=== PATIENT | female | born 1940 | race Caucasian/White ===

== ENCOUNTER 2019-03-11 06:25 | Observation (INO) | payer BC, MEDICARE ==
[~2019-03-11] VITALS: Ht 165.1 cm; Wt 150.3 kg
[2019-03-11] MEDS ORDERED: ONDANSETRON 2MG/ML, 2ML IVPush ONE (06:30)
[2019-03-11 06:55] LABS: BASOPHILS # (AUTO) 0.04 x10^3/uL (0-0.1); BASOPHILS % (AUTO) 1 % (0-1); EOSINOPHILS # (AUTO) 0.16 x10^3/uL (0-0.4); EOSINOPHILS % (AUTO) 3 % (1-7); LYMPHOCYTES % (AUTO) 24 % (22-44); MD NO; MEAN CORPUSCULAR HEMOGLOBIN 31.7 pg (27.0-34.8); MEAN CORPUSCULAR HGB CONC 32.5 g/dL (32.4-35.8); MEAN CORPUSCULAR VOLUME 97.5 fL (80-100); MEAN PLATELET VOLUME 7.6 fL (7.4-10.4); MONOCYTES # (AUTO) 0.75 x10^3/uL (0.2-0.8); MONOCYTES % (AUTO) 14 % (2-9); NEUTROPHILS # (AUTO) 3.18 x10^3/uL (1.8-6.8); NEUTROPHILS % (AUTO) 59 % (42-75); PLATELET COUNT 289 x10^3/uL (130-400); RED BLOOD COUNT 3.93 x10^6/uL (3.82-5.3); RED CELL DISTRIBUTION WIDTH 14.2 % (9.6-15.2)
[2019-03-11] MEDS ORDERED: ONDANSETRON 2MG/ML, 2ML ONE (06:59)
[2019-03-11 07:05] LABS: ALANINE AMINOTRANSFERASE 18 U/L (12-78); ALBUMIN 3.6 g/dL (3.4-5.0); ANION GAP 4 mmol/L (5-15); CALCIUM 9.2 mg/dL (8.5-10.1); CHLORIDE 110 mmol/L (98-107); CREATININE 0.95 mg/dL (0.55-1.02); INTERNATIONAL NORMALIZED RATIO 0.91 (0.93-1.1); PROTHROMBIN TIME 9.6 Seconds (9.6-11.5)
[2019-03-11 07:09] LABS: ALKALINE PHOSPHATASE 74 U/L (45-117); BILIRUBIN,TOTAL 0.4 mg/dL (0.2-1.0); TOTAL PROTEIN 6.8 g/dL (6.4-8.2); TROPONIN I < 0.015 ng/mL (0.000-0.045)
[2019-03-11] MEDS ORDERED: ATOR20TA37 PO (08:17)
[2019-03-11] MEDS ORDERED: LOSA100T14 PO (08:17)
[2019-03-11] MEDS ORDERED: CARV6.2512 PO (08:17)
[2019-03-11] MEDS ORDERED: CITA20TA6 PO (08:17)
[2019-03-11] MEDS ORDERED: [UNRECOGNIZED DRUG - OTHER] BC (08:17)
[2019-03-11] MEDS ORDERED: CHOL500020 PO (08:17)
[2019-03-11] MEDS ORDERED: INSU100C SQ-INSULIN (08:17)
[2019-03-11] MEDS ORDERED: CYAN100028 PO (08:17)
[2019-03-11] MEDS ORDERED: CILO100T PO (08:17)
[2019-03-11] MEDS ORDERED: INSU100V8 SQ (08:17)
[2019-03-11] MEDS ORDERED: OMEP40CA42 PO (08:17)
[2019-03-11] MEDS ORDERED: MELO7.5T31 PO (08:17)
[2019-03-11] MEDS ORDERED: GABA300C10 PO (08:17)
[2019-03-11] MEDS ORDERED: ALPR0.5T7 PO (08:17)
[2019-03-11 08:57] LABS: CLOSTRIDIUM DIFFICILE ANTIGEN NEGATIVE; CLOSTRIDIUM DIFFICILE TOXIN NEGATIVE (Negative)
--- NOTE | 2019-03-11 08:59 | NUR ---
TASK RN: FIRST CONTACT WITH PT. Obtained straight cath UA. Pt tolerated procedure with out complications. UA sent to lab. Primary RN aware.
[2019-03-11 09:12] LABS: MICROSCOPIC NOT IND
[2019-03-11 09:17] LABS: CULTURE INDICATED? NO
[2019-03-11] MEDS ORDERED: ASPIRIN 81 MG TABLET CHEW ONE (09:30)
[2019-03-11] MEDS ORDERED: ASPIRIN 81 MG TABLET CHEW PO ONE (09:30)
--- NOTE | 2019-03-11 09:39 | NUR ---
BREAK RN NOTE: PT BOOSTED IN BED, REPOSITIONED FOR COMFORT. MEDICATED PER EMAR WITH ASA, PT TOLERATED WELL. EDMD LAW NOTIFIED THAT BP IS 196/86, MD DECLINES TO TREAT HTN AT THIS TIME. PT IS A&O, RESPS EVEN AND UNLABORED. 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 NO N/V AT THIS TIME, PT DENIES PAIN. CALL LIGHT IN REACH, FAMILY AT BEDSIDE. PT AND FAMILY UPDATED WITH POC.
--- NOTE | 2019-03-11 09:50 | NUR ---
report given back to primary REGINA Valdes.
--- NOTE | 2019-03-11 09:59 | NUR ---
dr hernandez at bedside, assessment in progress
[2019-03-11] MEDS ORDERED: DEXTROSE 4 GM TAB.CHEW PO PRN (10:30)
[2019-03-11] MEDS ORDERED: DEXTROSE 50%, 50ML SYRINGE IVPush PRN (10:30)
[2019-03-11] MEDS ORDERED: PROMETHAZINE 25 MG/ML, 1ML IM PRN (10:30)
[2019-03-11] MEDS ORDERED: ACETAMINOPHEN 325 MG TABLET PO PRN (10:30)
[2019-03-11] MEDS ORDERED: ENALAPRILAT 1.25 MG/ML, 2ML IV PRN (10:30)
[2019-03-11] MEDS ORDERED: METOCLOPRAMIDE 5 MG/ML, 2ML IVPush PRN (10:30)
[2019-03-11] MEDS ORDERED: ONDANSETRON 2MG/ML, 2ML IVPush PRN (10:30)
[2019-03-11] MEDS ORDERED: LABETALOL 5MG/ML, 20ML IV PRN (10:30)
[2019-03-11] MEDS ORDERED: GLUCAGON 1 MG IM PRN (10:30)
[2019-03-11 12:11] VITALS: BP 166/83
[2019-03-11] MEDS: INSULIN LISPRO 100 UNITS/ML, PEN SQ-INSULIN SCH ×5 (12:46→20:41)
[2019-03-11] MEDS: ENOXAPARIN 40 MG/0.4 ML SQ SCH (12:46)
[2019-03-11 12:52] LABS: TROPONIN I < 0.015 ng/mL (0.000-0.045)
[2019-03-11 14:01] VITALS: BP 173/83
[2019-03-11 16:10] VITALS: BP 167/84
[2019-03-11 17:18] LABS: TROPONIN I < 0.015 ng/mL (0.000-0.045)
[2019-03-11] MEDS: GABAPENTIN 300 MG CAPSULE PO SCH ×2 (17:38→20:40)
[2019-03-11 18:44] VITALS: BP 118/71
[2019-03-11] MEDS: SODIUM CHLORIDE FLUSH 10ML SYR IVF SCH (20:40)
[2019-03-11] MEDS: MELOXICAM 15 MG TABLET PO SCH (20:41)
[2019-03-11] MEDS: CILOSTAZOL 100 MG TABLET PO SCH (20:41)
[2019-03-11] MEDS: CARVEDILOL 12.5 MG TABLET PO SCH (20:41)
[2019-03-11] MEDS ORDERED: ATORVASTATIN 40 MG TABLET PO SCH (21:00)
[2019-03-11] MEDS ORDERED: INSULIN GLARGINE 100 UNITS/ML, PEN SQ-INSULIN SCH (21:00)
[2019-03-12 01:36] VITALS: BP 120/81
[2019-03-12 05:26] LABS: BASOPHILS # (AUTO) 0.03 x10^3/uL (0-0.1); BASOPHILS % (AUTO) 1 % (0-1); EOSINOPHILS # (AUTO) 0.17 x10^3/uL (0-0.4); EOSINOPHILS % (AUTO) 4 % (1-7); LYMPHOCYTES # (AUTO) 1.61 x10^3/uL (1-3.4); LYMPHOCYTES % (AUTO) 34 % (22-44); MD NO; MEAN CORPUSCULAR HEMOGLOBIN 31.7 pg (27.0-34.8); MEAN CORPUSCULAR HGB CONC 32.5 g/dL (32.4-35.8); MEAN CORPUSCULAR VOLUME 97.6 fL (80-100); MEAN PLATELET VOLUME 8.1 fL (7.4-10.4); MONOCYTES # (AUTO) 0.64 x10^3/uL (0.2-0.8); MONOCYTES % (AUTO) 13 % (2-9); NEUTROPHILS # (AUTO) 2.34 x10^3/uL (1.8-6.8); NEUTROPHILS % (AUTO) 49 % (42-75); PLATELET COUNT 249 x10^3/uL (130-400); RED BLOOD COUNT 3.49 x10^6/uL (3.82-5.3); RED CELL DISTRIBUTION WIDTH 14.4 % (9.6-15.2)
[2019-03-12 05:38] LABS: ALBUMIN 3.1 g/dL (3.4-5.0); CALCIUM 8.8 mg/dL (8.5-10.1); CHLORIDE 110 mmol/L (98-107)
[2019-03-12 05:47] LABS: ALANINE AMINOTRANSFERASE 16 U/L (12-78); ALKALINE PHOSPHATASE 60 U/L (45-117); ANION GAP 3 mmol/L (5-15); BILIRUBIN,TOTAL 0.5 mg/dL (0.2-1.0); CHOL/HDL RATIO 1.8; CHOLESTEROL, TOTAL 169 mg/dL (140-239); CREATININE 0.87 mg/dL (0.55-1.02); HDL CHOL % 54 % (28-40); HDL CHOLESTEROL (DIRECT) 92 mg/dL (40-60); LDL CHOLESTEROL,CALCULATED 56 mg/dL (54-169); LDL/HDL RATIO 0.6 (0.5-3.0); TOTAL PROTEIN 5.9 g/dL (6.4-8.2); TRIGLYCERIDES 104 mg/dL (50-200); VLDL CHOLESTEROL 21 mg/dL (0-25)
[2019-03-12] MEDS ORDERED: OMEPRAZOLE 20 MG CAPSULE.DR PO SCH (06:00)
[2019-03-12 06:53] VITALS: BP 175/89
[2019-03-12] MEDS: INSULIN LISPRO 100 UNITS/ML, PEN SQ-INSULIN SCH ×4 (07:00→11:49)
[2019-03-12] MEDS: CILOSTAZOL 100 MG TABLET PO SCH (08:15)
[2019-03-12] MEDS: CARVEDILOL 12.5 MG TABLET PO SCH (08:15)
[2019-03-12] MEDS: GABAPENTIN 300 MG CAPSULE PO SCH (08:16)
[2019-03-12] MEDS: MELOXICAM 15 MG TABLET PO SCH (08:17)
[2019-03-12] MEDS: SODIUM CHLORIDE FLUSH 10ML SYR IVF SCH (08:17)
[2019-03-12] MEDS ORDERED: CITALOPRAM 20 MG TABLET PO SCH (09:00)
[2019-03-12] MEDS ORDERED: LOSARTAN 50MG TABLET PO SCH (09:00)
[2019-03-12] MEDS ORDERED: ASPIRIN 81 MG TABLET CHEW PO/NG SCH (09:00)
[2019-03-12] MEDS ORDERED: LINAGLIPTIN 5 MG TAB PO SCH (09:00)
[2019-03-12] MEDS ORDERED: CYANOCOBALAMIN 1,000 MCG TABLET PO SCH (09:00)
[2019-03-12 13:31] VITALS: BP 96/61
[2019-03-12] MEDS: ENOXAPARIN 40 MG/0.4 ML SQ SCH (13:39)
== END 2019-03-12 15:17 | disposition home or self-care (01) ==
LOC: ED 08:38 → INTOOBSV 09:07 → EDIP 09:07 → 4WST 10:39
PROVIDERS: ADMIT Internal Medicine; ATTEND Internal Medicine
DX: A08.4 Viral intestinal infection, unspecified (principal); I11.9 Hypertensive heart disease without heart failure; I25.10 Atherosclerotic heart disease of native coronary artery without angina pectoris; E11.42 Type 2 diabetes mellitus with diabetic polyneuropathy; E78.5 Hyperlipidemia, unspecified; E11.51 Type 2 diabetes mellitus with diabetic peripheral angiopathy without gangrene; K21.9 Gastro-esophageal reflux disease without esophagitis; G47.33 Obstructive sleep apnea (adult) (pediatric); M19.019 Primary osteoarthritis, unspecified shoulder; F41.9 Anxiety disorder, unspecified; F32.9 Major depressive disorder, single episode, unspecified; E55.9 Vitamin D deficiency, unspecified; E53.8 Deficiency of other specified B group vitamins; I25.2 Old myocardial infarction; I69.351 Hemiplegia and hemiparesis following cerebral infarction affecting right dominant side; Z79.4 Long term (current) use of insulin; H54.61 Unqualified visual loss, right eye, normal vision left eye; H40.9 Unspecified glaucoma; E11.36 Type 2 diabetes mellitus with diabetic cataract; C50.911 Malignant neoplasm of unspecified site of right female breast; Z85.3 Personal history of malignant neoplasm of breast; Z90.710 Acquired absence of both cervix and uterus; Z66 Do not resuscitate; H57.02 Anisocoria; Z85.42 Personal history of malignant neoplasm of other parts of uterus; Z79.899 Other long term (current) drug therapy
CPT/HCPCS: 36415; 70450; 70551; 71045; 80053; 80061; 81003; 82962; 83036; 83735; 84100; 84443; 84484; 85025; 85610; 85730; 87324; 93005; 93306; 93880; 96372; 96374; 97161; 97166; 99284; G0378; J1650; J1815; J2405